=== PATIENT | female | born 1975 | race Caucasian/White ===

== ENCOUNTER 2016-03-31 16:39 | Outpatient (CLI) | payer MEDICAID ==
[2016-03-31 19:06] LABS: HEMATOCRIT 18.6 % (36.0-47.0); HGB HCT DIFFERENCE -0.9; MEAN CORPUSCULAR HEMOGLOBIN 28.3 pg (27.0-33.4); MEAN CORPUSCULAR HGB CONC 31.5 g/dL (32.0-36.0); MEAN CORPUSCULAR VOLUME 90 fl (80-97); RED BLOOD COUNT 2.07 10^6/uL (3.72-5.28); RED CELL DISTRIBUTION WIDTH 21.4 % (11.5-14.0); WHITE BLOOD COUNT 12.5 10^3/uL (4.0-10.5)
[2016-03-31 19:20] LABS: HEMOGLOBIN 5.9 g/dL (12.0-15.5)
[2016-04-01] MEDS ORDERED: FUROSEMIDE INJ/PF 20 MG/2 ML SDV IV PRN (08:49)
[2016-04-01] MEDS ORDERED: ACETAMINOPHEN 325 MG TABLET PO PRN (08:49)
[2016-04-01] MEDS ORDERED: DIPHENHYDRAMINE HCL 25 MG CAPSULE PO PRN (08:49)
[2016-04-01] MEDS ORDERED: ACETAMINOPHEN 325 MG TABLET ONE (08:50)
[2016-04-01] MEDS ORDERED: DIPHENHYDRAMINE HCL 25 MG CAPSULE ONE (08:50)
[2016-04-01] MEDS ORDERED: NORMAL SALINE 250 ML IV PRN (08:53)
[2016-04-01 14:49] VITALS: BP 114/52
== END 2016-04-01 14:50 | disposition home or self-care (01) ==
LOC: OD 16:39 → 5TH 04-01 08:01 → OD 04-01 14:50
PROVIDERS: ATTEND Internal Medicine
PROC: 30233N1 Transfusion of Nonautologous Red Blood Cells into Peripheral Vein, Percutaneous Approach (ICD-10-PCS; principal; 2016-04-01)
DX: D64.9 Anemia, unspecified (principal)
CPT/HCPCS: 86900; 86901; 36415; 36430; 86850; 86920; P9016; J3490 ×2

== ENCOUNTER → 2016-04-28 | Outpatient (CLI) | payer MEDICAID | LOC: RAD 09:30 | PROVIDERS: ATTEND Internal Medicine | DX: C50.412 Malignant neoplasm of upper-outer quadrant of left female breast (principal) | CPT/HCPCS: 71260; 74177 ==

== ENCOUNTER 2016-06-18 10:50 | Emergency (ER) | payer OTHER, MEDICAID ==
--- NOTE | 2016-06-18 10:58 | ER Document Report ---
ED General Pain - General Stated Complaint: PAIN ALL OVER Time seen by provider: 10:58 Mode of Arrival: Medic Information source: Patient Notes: 40-year-old female sent from Dr. Tidwell office due to generalized pain crisis and did not receive her chemotherapy that she was supposed to have today.. The patient admits that she ran out of the OxyContin 60 mg that she takes twice a day yesterday and she does not have any oxycodone and short acting 20 mg left. She is opiate dependent for her metastatic breast cancer stage IV. No fever or chills. No chest pain or abdominal pain. Patient states she believes she is in withdrawal. TRAVEL OUTSIDE OF THE [place] IN LAST 30 DAYS: No - Related Data Allergies/Adverse Reactions: cefaclor [From Ceclor] Allergy (Verified 08/11/15 19:08) shellfish derived Allergy (Verified 11/26/15 11:11) Past Medical History - General Information source: Patient, Parent - Social History Smoking Status: Former Smoker Frequency of alcohol use: None Drug Abuse: None Lives with: Family Family History: Reviewed & Not Pertinent - Past Medical History Cardiac Medical History: Reports: Hx Hypercholesterolemia Pulmonary Medical History: Reports: Hx Asthma, Hx Pneumonia Neurological Medical History: Reports: Hx Cerebrovascular Accident, Hx Migraine Malignancy Medical History: Reports: Hx Bone Cancer - Metastasis, Hx Breast Cancer - Stage IV Musculoskeltal Medical History: Denies Hx Arthritis Psychiatric Medical History: Reports: Hx Depression Past Surgical History: Reports: Hx Section, Hx Orthopedic Surgery - right knee - Immunizations Hx Diphtheria, Pertussis, Tetanus Vaccination: No Hx Pneumococcal Vaccination: 03/14/12 Review of Systems - Review of Systems Constitutional: See HPI EENT: No symptoms reported Cardiovascular: No symptoms reported Respiratory: No symptoms reported Gastrointestinal: No symptoms reported Genitourinary: No symptoms reported Female Genitourinary: No symptoms reported Musculoskeletal: See HPI Skin: No symptoms reported Hematologic/Lymphatic: No symptoms reported Neurological/Psychological: No symptoms reported Physical Exam - Vital signs Vitals: Resp Pulse Ox 11 L 94 06/18/16 11:39 06/18/16 11:39 Interpretation: Normal Notes: Moaning and curling up in pain - General General appearance: Alert In distress: Moderate - HEENT Head: Normocephalic, Atraumatic Eyes: Normal Conjunctiva: Normal Pupils: PERRL Neck: Supple. No: Lymphadenopathy - Respiratory Respiratory status: No respiratory distress Chest status: Nontender Breath sounds: Normal Chest palpation: Normal - Cardiovascular Rhythm: Regular Heart sounds: Normal auscultation Murmur: No - Abdominal Inspection: Normal Distension: No distension Bowel sounds: Normal Tenderness: Nontender Organomegaly: No organomegaly - Back Back: Normal, Nontender. No: CVA tenderness - Extremities General upper extremity: Normal inspection, Nontender, Normal color, Normal ROM , Normal temperature General lower extremity: Normal inspection, Nontender, Normal color, Normal ROM , Normal temperature, Normal weight bearing. No: Patricia's sign - Neurological Neuro grossly intact: Yes Cognition: Normal Orientation: AAOx4 Lucio Coma Scale Eye Opening: Spontaneous Lucio Coma Scale Verbal: Oriented Lucio Coma Scale Motor: Obeys Commands Lucio Coma Scale Total: 15 Speech: Normal Motor strength normal: LUE, RUE, LLE, RLE Sensory: Normal - Psychological Associated symptoms: Normal affect, Normal mood - Skin Skin Temperature: Warm Skin Moisture: Dry Skin Color: Normal Skin irregularity: negative: Rash Course - Re-evaluation Re-evalutation: 06/18/16 13:[address] Tidwell who will increase her oxycontin to 80 mg twice a day and also give her some more short acting 20 mg. She may have urinary tract infection with 1+ bacteria and 17 wbc's so I will prescribe an antibiotic pending urine culture results. 06/19/16 10:24 Called and checked and spoke with the mother who said that her pain level down off when she got increased the oxycotin 80 mg twice a day., Also Dr. Tidwell also gave her more short acting 20 mg oxycodone - Vital Signs Vital signs: Temp Pulse Resp BP Pulse Ox 98.7 F 20 104/61 78 L 06/18/16 14:06 06/18/16 13:52 06/18/16 13:52 06/18/16 14:00 - Laboratory Result Diagrams: 06/18/16 11:15 06/18/16 11:15 Laboratory results interpreted by me: 06/18/16 06/18/16 06/18/16 11:15 11:15 11:15 RBC 3.00 L Hgb 8.3 L Hct 24.5 L RDW 15.9 H Seg Neuts % (Manual) 86 H Lymphocytes % (Manual) 7 L Metamyelocytes % 1 H Sodium 147.2 H Chloride 110 H Creatinine 0.49 L Glucose 132 H Magnesium 2.5 H AST 44 H Alkaline Phosphatase 180 H Ur Leukocyte Esterase 06/18/16 11:47 RBC Hgb Hct RDW Seg Neuts % (Manual) Lymphocytes % (Manual) Metamyelocytes % Sodium Chloride Creatinine Glucose Magnesium AST Alkaline Phosphatase Ur Leukocyte Esterase MODERATE H Discharge - Discharge Clinical Impression: chronic pain, stage IV breast cancer Urinary tract infection Qualifiers: Urinary tract infection type: site unspecified Hematuria presence: without hematuria Qualified Code(s): N39.0 - Urinary tract infection, site not specified Condition: Good Disposition: HOME, SELF-CARE Instructions: Cephalexin ([facility]), Urinary Tract Infection ([facility]), Chronic Pain Control ([facility]) Additional Instructions: go directly to dr tidwell office for pain medication prescriptions to er any concerns urine culture is pending Please complete the patient satisfaction survey if you get one, and return it.. If you do not receive a survey, then you can go to the [facility] website, [email or web address] and place your comments about your very good care. Thank you very much. It was a pleasure being your medical provider today. Prescriptions: Sulfamethoxazole/Trimethoprim [Sulfamethoxazole-Tmp Ds Tablet] 1 each PO BID # 14 tablet Referrals: EDUIN GUTIÉRREZ MD [Primary Care Provider] - Follow up as needed IVONNE TIDWELL MD [ACTIVE STAFF] - 06/18/16
[2016-06-18] MEDS ORDERED: NORMAL SALINE 1000 ML 1,000 ML IV ONE (11:18)
[2016-06-18] MEDS ORDERED: ONDANSETRON HCL INJ/PF 4 MG/2 ML SDV IV ONE (11:24)
[2016-06-18] MEDS ORDERED: HYDROMORPHONE HCL INJ/PF 2 MG/ML AMPULE IV ONE ×2 (11:24→12:05)
[2016-06-18 11:37] LABS: HEMATOCRIT 24.5 % (36.0-47.0); HEMOGLOBIN 8.3 g/dL (12.0-15.5); HGB HCT DIFFERENCE 0.4; MEAN CORPUSCULAR HEMOGLOBIN 27.7 pg (27.0-33.4); MEAN CORPUSCULAR HGB CONC 33.9 g/dL (32.0-36.0); MEAN CORPUSCULAR VOLUME 82 fl (80-97); RED CELL DISTRIBUTION WIDTH 15.9 % (11.5-14.0)
[2016-06-18 11:50] LABS: ALANINE AMINOTRANSFERASE 52 U/L (9-52); ALBUMIN 3.6 g/dL (3.5-5.0); ALKALINE PHOSPHATASE 180 U/L (38-126); ANION GAP 13 (5-19); ASPARTATE AMINO TRANSFERASE 44 U/L (14-36); BILIRUBIN,DIRECT 0.4 mg/dL (0.0-0.4); BILIRUBIN,TOTAL 0.7 mg/dL (0.2-1.3); BLOOD UREA NITROGEN 8 mg/dL (7-20); CARBON DIOXIDE 24 mmol/L (22-30); CHLORIDE 110 mmol/L (98-107); CREATININE RESULT 0.49 mg/dL (0.52-1.25); GLUCOSE 132 mg/dL (75-110); POTASSIUM 3.9 mmol/L (3.6-5.0); SODIUM 147.2 mmol/L (137-145); TOTAL PROTEIN 6.6 g/dL (6.3-8.2)
[2016-06-18 12:04] LABS: BASOPHILS % (MANUAL) 0 % (0-2); EOSINOPHILS % (MANUAL) 0 % (0-6); LYMPHOCYTES % (MANUAL) 7 % (13-45); TOTAL CELLS COUNTED 100
[2016-06-18 12:05] LABS: ANISOCYTOSIS 1+; POIKILOCYTOSIS 1+; POLYCHROMASIA SLIGHT; TEAR DROP CELLS 1+
[2016-06-18 12:07] LABS: APPEARANCE,URINE CLOUDY; BILIRUBIN,URINE NEGATIVE (NEGATIVE); GLUCOSE, URINE NEGATIVE (NEGATIVE); KETONES,URINE NEGATIVE (NEGATIVE); LEUKOCYTE ESTERASE,URINE MODERATE (NEGATIVE); NITRITE,URINE NEGATIVE (NEGATIVE); PROTEIN,URINE NEGATIVE (NEGATIVE); URINE SPECIFIC GRAVITY 1.009; UROBILINOGEN,URINE NEGATIVE mg/dL (<2.0)
[2016-06-18 14:06] VITALS: BP 104/61
== END 2016-06-18 14:06 | disposition home or self-care (01) ==
LOC: ER 10:50
DX: G89.29 Other chronic pain (principal); C50.919 Malignant neoplasm of unspecified site of unspecified female breast; N39.0 Urinary tract infection, site not specified; M79.1 Myalgia; Z91.013 Allergy to seafood
CPT/HCPCS: 96376; 99283; 96374; 96375; 36415; 87086; 83735; 85025; 80053; 81001; J1170; J2405; J7030

== ENCOUNTER → 2016-07-05 | Outpatient (CLI) | payer MEDICAID | LOC: RAD 08:49 | PROVIDERS: ATTEND Internal Medicine | DX: C50.412 Malignant neoplasm of upper-outer quadrant of left female breast (principal) | CPT/HCPCS: 71260; 74177 ==

== ENCOUNTER → 2016-07-09 | Outpatient (CLI) | payer MEDICAID | LOC: RAD 08:54 | PROVIDERS: ATTEND Internal Medicine | DX: C50.412 Malignant neoplasm of upper-outer quadrant of left female breast (principal); C79.51 Secondary malignant neoplasm of bone | CPT/HCPCS: 78306; A9503; Q9969 ==

== ENCOUNTER 2016-07-14 08:57 | Day surgery (SDC) | payer MEDICAID ==
[2016-07-14 09:41] LABS: HEMATOCRIT 26.6 % (36.0-47.0); HEMOGLOBIN 9.1 g/dL (12.0-15.5); HGB HCT DIFFERENCE 0.7; MEAN CORPUSCULAR HEMOGLOBIN 28.4 pg (27.0-33.4); MEAN CORPUSCULAR HGB CONC 34.1 g/dL (32.0-36.0); MEAN CORPUSCULAR VOLUME 83 fl (80-97); RED BLOOD COUNT 3.19 10^6/uL (3.72-5.28); WHITE BLOOD COUNT 9.3 10^3/uL (4.0-10.5)
[2016-07-14 09:54] LABS: BLOOD UREA NITROGEN 13 mg/dL (7-20); CREATININE RESULT 0.65 mg/dL (0.52-1.25); PARTIAL THROMBOPLASTIN TIME 28.2 SEC (23.5-35.8); PROTHROMBIN TIME 13.6 SEC (11.4-15.4)
[2016-07-14] MEDS ORDERED: FENTANYL CITRATE INJ/PF 100 MCG/2 ML AMPUL ONE ×2 (10:40→11:38)
[2016-07-14] MEDS ORDERED: MIDAZOLAM 2 MG/2 ML INJ ONE (10:40)
[2016-07-14 15:18] VITALS: BP 132/83
== END 2016-07-14 14:15 | disposition home or self-care (01) ==
LOC: RAD 08:57
PROVIDERS: ATTEND Internal Medicine
PROC: 0FB13ZX Excision of Right Lobe Liver, Percutaneous Approach, Diagnostic (ICD-10-PCS; principal; 2016-07-14)
DX: C78.7 Secondary malignant neoplasm of liver and intrahepatic bile duct (principal); C50.412 Malignant neoplasm of upper-outer quadrant of left female breast; Z17.0 Estrogen receptor positive status [ER+]; E78.5 Hyperlipidemia, unspecified; D64.9 Anemia, unspecified; M19.90 Unspecified osteoarthritis, unspecified site; J45.909 Unspecified asthma, uncomplicated; Z88.8 Allergy status to other drugs, medicaments and biological substances; Z79.899 Other long term (current) drug therapy
CPT/HCPCS: 36415; 84520; 82565; 85027; 85610; 85730; 88342 ×2; 88341 ×2; 88305 ×2; 77012; 47000; J2250; J3010

== ENCOUNTER → 2016-08-19 | Outpatient (CLI) | payer MEDICAID ==
--- NOTE | 2016-08-19 11:57 | RADIOLOGY REPORT (SQ) ---
EXAM DESCRIPTION: MRI HEAD COMBO COMPLETED DATE/TIME: 08/19/2016 10:56 am REASON FOR STUDY: BREAST CA W/ BONE METS (C50.412)(C79.51) C50.412 MALIG NEOPLASM OF UPPER-OUTER QU ADRANT OF LEFT FEMAL COMPARISON: None. TECHNIQUE: Multiplanar imaging includes noncontrasted T1, T2, FLAIR, diffusion with ADC map and post gadolinium contrast T1 sequences. Images stored on PACS. CONTRAST TYPE AND DOSE: 10 mL Multihance. RENAL FUNCTION: GFR > 60. LIMITATIONS: None. FINDINGS: ANATOMY: Multiple areas of abnormal signal in the calvarium, the largest over the left fro ntal convexity with loss of normal T1 signal in the bone and adjacent dural enhancement. Several sma ller lesions scattered throughout the calvarium. CSF SPACES: Normal in size and contour. No hemorrhage. CEREBRUM: Sulci and gyri normal in size and contour. Normal white matter signal on FLAIR imaging. No evidence of hemorrhage, mass, or extraaxial fluid collection. Diffuse leptomeningeal enhancement. POSTERIOR FOSSA: Leptomeningeal enhancement. No hemorrhage. No edema, masses, or mass effect. Interna l auditory canals, cerebellopontine angles are normal. Small amount of fluid in the mastoid air cell s, left greater than right. DIFFUSION IMAGING: Negative for acute or subacute infarction. ORBITS: No masses. Globes normal. PARANASAL SINUSES: Mucosal thickening right sphenoid sinus. OTHER: No other significant finding. IMPRESSION: Meningeal and bone metastasis. TECHNICAL DOCUMENTATION: JOB ID: [id number] [employer]- All Rights Reserved
== END ==
LOC: RAD 09:40
PROVIDERS: ATTEND Internal Medicine
DX: C50.412 Malignant neoplasm of upper-outer quadrant of left female breast (principal); C79.51 Secondary malignant neoplasm of bone
CPT/HCPCS: 70553; A9577

== ENCOUNTER → 2017-01-20 | Outpatient (CLI) | payer MEDICAID ==
--- NOTE | 2017-01-20 12:10 | RADIOLOGY REPORT (SQ) ---
EXAM DESCRIPTION: CT CHEST WITH; CT ABD/PELVIS WITH IV ONLY COMPLETED DATE/TIME: 01/20/2017 10:48 am REASON FOR STUDY: C50.412 MALIG NEOPLASM OF UPPER-OUTER QUADRANT OF LEFT FEMALE BREAST C50.412 FRANCISCO G NEOPLASM OF UPPER-OUTER QUADRANT OF LEFT FEMAL CONTRAST TYPE AND DOSE: contrast/concentration: Isovue 370.00 mg/ml; Total Contrast Delivered: 65.0 ml; Total Saline Delivered: 56.0 ml RENAL FUNCTION: None required. The patient is less than 50 years old. COMPARISON: CT abdomen 02/25/2016 CT chest 07/05/2016 TECHNIQUE: CT scan of the chest performed using helical scanning technique with dynamic intravenous contrast injection. Images reviewed with lung, soft tissue and bone windows. Reconstructed coronal a nd sagittal MPR images reviewed. All images stored on PACS. All CT scanners at this facility use dose modulation, iterative reconstruction, and/or weight based d osing when appropriate to reduce radiation dose to as low as reasonably achievable (ALARA). [facility]: Dose Right [facility]: CareDose [facility]: Dose Right [facility]: Teradose 4D [facility]: Smart Innorange Oy RADIATION DOSE: Up-to-date CT equipment and radiation dose reduction techniques were employed. CTDIv ol: 4.4 - 5.0 mGy. DLP: 658 mGy-cm.. LIMITATIONS: None. FINDINGS: AXILLAE: No adenopathy. CHEST WALL: There is a 10 mm nodule in the left breast on image 25 series 2 there is not present on t he study of 07/05/2016. LUNGS: There is a sub cm somewhat ground-glass pulmonary nodule on image 35 series 6. This is better defined than on the prior study. There is an 8 mm slightly irregular nodules seen on image 43 serie s 6 in the right lung that is very slightly larger. There is an 8 mm nodule in the left lung on imag e 45 series 6 that is not identified on the earlier study a 5 mm nodule seen in the right lung on nicolas ge 47 series 6. This is not identified on the earlier study. There is an 11 by 19 mm mass in the ri ght lower lobe on image 56 series 6 that is new. There are other smaller nodules in the lungs that a re new. PLEURA: Small pleural effusions, left slightly greater than right. There is slight pleural thickenin g on the left on image 35 series 2 that is new. THYROID: No masses or significant asymmetry. HILAR AND MEDIASTINAL STRUCTURES: No identified masses or abnormal nodes. AORTA AND GREAT VESSELS: No aneurysm. No dissection. PULMONARY ARTERIES: No identified pulmonary emboli. Study not optimized for the pulmonary arteries. HEART: No pericardial effusion. HARDWARE AND LIFELINES: None. BONES: Very numerous lytic lesions are present in bones. OTHER: No other significant finding. IMPRESSION: 1. New left breast nodule. 2. Increasing metastatic disease to lungs and possibly pleura. Metastatic disease to bone. COMPARISON: 02/25/2016 RADIATION DOSE: Up-to-date CT equipment and radiation dose reduction techniques were employed. CTDIv ol: 4.4 - 5.0 mGy. DLP: 658 mGy-cm.mGy. TECHNIQUE: CT scan of the abdomen and pelvis performed with intravenous and oral contrast using samm eusebia scanning technique with dynamic intravenous contrast injection. Images reviewed with lung, soft tissue and bone windows. Reconstructed coronal and sagittal MPR images reviewed. Delayed images for evaluation of the urinary system also acquired and evaluated. All images stored on PACS. All CT scanners at this facility use dose modulation, iterative reconstruction, and/or weight based d osing when appropriate to reduce radiation dose to as low as reasonably achievable (ALARA). [facility]: Dose Right [facility]: SureCare [facility]: Dose Right [facility]: Teradose 4D [facility]: Plazapoints (Cuponium) FINDINGS: LIVER: There are now all large areas of confluent low-density scattered throughout the nikki er. The change is dramatic. The largest lesion is in the midline measures 8 cm in transverse diamet er. SPLEEN: Splenomegaly. PANCREAS: No masses. No significant calcifications. No adjacent inflammation or peripancreatic flui d collections. Pancreatic duct not dilated. GALLBLADDER: The gallbladder appears to be contracted. There is pericholecystic fluid. ADRENAL GLANDS: No significant masses or asymmetry. RIGHT KIDNEY AND URETER: No solid masses. No significant calcification. No hydronephrosis or hydroure ter. LEFT KIDNEY AND URETER: No solid masses. No significant calcification. No hydronephrosis or hydrouret er. AORTA AND VESSELS: No aneurysm. No dissection. Renal arteries, SMA, celiac without stenosis. RETROPERITONEUM: No retroperitoneal adenopathy, hemorrhage or masses. LARGE AND SMALL BOWEL: No dilatation. No masses. No wall thickening. APPENDIX: Normal. ABDOMINAL WALL: There is an 8 cm wide ventral hernia containing unobstructed bowel. PERITONEAL CAVITY: No free air. No free fluid in the peritoneal cavity. There is some pericholecyst ic fluid. PELVIS: No mass or free fluid. Normal bladder. BONES: Extensive metastatic disease is present in the bones. OTHER: No other significant finding. IMPRESSION: 1. There is very extensive metastatic disease in the liver and the bones. The changes in the liver are dramatic. Bowel metastases are more difficult to quantify given the extent of them. 2. There is pericholecystic fluid. 3. There is a wide ventral hernia containing unobstructed bowel. TECHNICAL DOCUMENTATION: JOB ID: [id number] Quality ID # [id number]: Final reports with documentation of one or more dose reduction techniques (e.g., Au tomated exposure control, adjustment of the mA and/or kV according to patient size, use of iterative reconstruction technique) 2010 [employer]- All Rights Reserved
--- NOTE | 2017-01-20 12:48 | RADIOLOGY REPORT (SQ) ---
EXAM DESCRIPTION: MRI HEAD COMBO COMPLETED DATE/TIME: 01/20/2017 12:16 pm REASON FOR STUDY: C50.412 MALIG NEOPLASM OF UPPER-OUTER QUADRANT OF LEFT FEMALE BREAST C50.412 FRANCISCO G NEOPLASM OF UPPER-OUTER QUADRANT OF LEFT FEMAL COMPARISON: MRI brain 08/19/2016 TECHNIQUE: Multiplanar imaging includes noncontrasted T1, T2, FLAIR, diffusion with ADC map and post gadolinium contrast T1 sequences. Images stored on PACS. CONTRAST TYPE AND DOSE: 10 mL Multihance. RENAL FUNCTION: None required. The patient is less than 50 years old. LIMITATIONS: None. FINDINGS: Patient has diffuse calvarial involvement with metastatic breast cancer. There are multiple areas of tumor involvement with extension into the scalp and intracranially, most significant are as follows: 1. Anterior right frontal calvarial metastatic lesion, 6 cm transverse by 4 cm AP x 4 cm craniocaudad , bulging into the scalp has a soft tissue mass. There is also bulging into the right frontal region intracranially, flattening the right frontal lobe with mild vasogenic edema. 2. Right greater wing sphenoid metastatic tumor, 4 cm transverse by 4.5 cm AP by 3.5 cm craniocaudad, bulging into the posterolateral right orbit with moderate proptosis. There is also mass effect on t he anterior right temporal lobe, with flattening of the right temporal cortex and adjacent vasogenic edema. 3. Midline posterior calvarium 5 cm superior to the torcula, 3 cm transverse by 2 cm AP x 4 cm cranio caudad with soft tissue tumor bulging intracranially and into the scalp. There is adjacent narrowing of the posterior aspect superior sagittal sinus without sinus thrombosis. No mass effect on the adj acent posterior parietal brain parenchyma 4. Left frontal bone orbital roof region, 3.4 cm transverse by 3.5 cm AP by 3.3 cm craniocaudad with mild local mass effect on the left the inferior frontal brain parenchyma, and mild downward displacem ent of the left globe. 5. Sellar lesion extending into the sphenoid sinus and cavernous sinuses bilaterally, 2.6 by 2.4 by 2 cm in size. 6. There is diffuse dural enhancement from diffuse dural metastatic involvement No MR evidence of acute is ischemic change, or acute intracranial hemorrhage. No hydrocephalus. Mil d mucous membrane thickening in the right ethmoid, right frontal, and right maxillary sinuses IMPRESSION: Extensive calvarial metastatic disease now causing bulky epidural intracranial masses wi th local mass effect and vasogenic edema in the right frontal, and right temporal regions as above. Central skull base and bilateral bony orbital involvement also present No MR evidence of dural venous sinus thrombosis or acute infarct. EVIDENCE OF ACUTE STROKE: NO. TECHNICAL DOCUMENTATION: JOB ID: [id number] [employer]- All Rights Reserved
== END ==
LOC: RAD 09:49
PROVIDERS: ATTEND Internal Medicine
DX: C50.412 Malignant neoplasm of upper-outer quadrant of left female breast (principal); C79.51 Secondary malignant neoplasm of bone
CPT/HCPCS: 70553; 71260; 74177

== ENCOUNTER 2017-01-28 00:39 | Emergency (ER) | payer MEDICAID ==
[2017-01-28] MEDS ORDERED: HYDROMORPHONE HCL INJ/PF 2 MG/ML AMPULE ONE (00:43)
[2017-01-28] MEDS ORDERED: HYDROMORPHONE HCL INJ/PF 2 MG/ML AMPULE IV ONE ×3 (00:43→03:47)
[2017-01-28] MEDS ORDERED: ONDANSETRON HCL INJ/PF 4 MG/2 ML SDV IV ONE (00:43)
[2017-01-28] MEDS ORDERED: ONDANSETRON HCL INJ/PF 4 MG/2 ML SDV ONE (00:44)
--- NOTE | 2017-01-28 01:11 | ER Document Report ---
ED Fall - General Stated Complaint: LEFT FEMUR DEFORMITY Time Seen by Provider: 01/28/17 00:43 Mode of Arrival: Medic Information source: Patient, Emergency Med Personnel - [facility] Notes: Female with history of stage IV metastatic breast cancer with brain and bone metastases presents with left leg pain and deformity after falling at home. She has severe pain and gross deformity to the left femur. Denies injury otherwise. Currently undergoing radiation therapy but no chemotherapy. Patient received fentanyl 100 mcg total in route to the emergency department but still having considerable pain. Denies new head injury or other new traumatic pain. No loss of consciousness. Last oral intake was approximately 10 PM. - Related data Allergies/Adverse Reactions: shellfish derived Allergy (Intermediate, Unverified 01/28/17 05:00) Difficulty breathing cefaclor [From Ceclor] Allergy (Mild, Verified 01/28/17 05:00) Purpura thrombopenia Past Medical History - Social History Smoking Status: Never Smoker Family History: Reviewed & Not Pertinent Physical Exam - Vital signs Vitals: Resp Pulse Ox 34 H 95 01/28/17 01:00 01/28/17 01:00 Notes: Pulse 116 blood pressure 129/78 - Notes Notes: GENERAL: VS as per nursing doc. Well-appearing, well-nourished and in no acute distress. HEAD: Atraumatic, normocephalic. EYES: Sclera anicteric, left ptosis noted. ENT: Oropharynx is clear, tonsillar pillars well visualized. Slightly dry. Left facial droop is noted NECK: Normal range of motion, supple without no tenderness to palpation LUNGS: Breath sounds clear to auscultation bilaterally and equal. No wheezes rales or rhonchi. Port in place. HEART: Tachycardic but regular without murmur. ABDOMEN: Soft, non-tender, large ventral hernia/diastases noted EXTREMITIES: Gross deformity with left mid femur angulated approximately 90. 1 + dorsalis pedis pulse. NEUROLOGICAL: Chronic abnormalities as noted above, sensation intact at foot. PSYCH: Anxious, cooperative SKIN: Warm, slightly diaphoretic, no distal cyanosis Course - Re-evaluation Re-evalutation: 01/28/17 02:[address] Maldonado the patient's fracture. He reports with the angulation and history of cancer, he feels this will need further specialized care and repair. On my review of the x-ray she appears to have some lytic and sclerotic lesions more proximally over the femoral and intertrochanteric area 01/28/17 03:02 Patient and family request transfer to [place] for further care, evaluation and treatment. I spoke with the transfer center at [facility] and they will be contacting us back regarding consideration for acceptance. Patient's ANC calculated out to approximately 720. She is anemic and has required multiple transfusions in the past. She remains hemodynamically stable at this point. 01/28/17 03:[address] Johnson, hospitalist at [facility] and he recommended we contact orthopedics as they usually are the primary admitting physicians. Transfer center will contact them. At this point they have no beds and we will be waiting probably till morning. Family updated. 01/28/17 03:48 Patient requiring intermittent doses of Dilaudid which seemed to help and then slowly wears off. She seems to be tolerating it much better with the hair traction. I just reevaluated. Still has 2+ dorsalis pedis pulse neurovascular intact distally and able to wiggle toes. Family updated on transfer status. 01/28/17 03:[address] Elizalde from orthopedics and they will accept the patient to the emergency department as a transfer. Patient will remain n.p.o. is n.p.o. since 10:00 last night. 01/28/17 04:39 Patient was seen at the time of transfer. LLE is NVID. Pain much improved with no further complaints. Hemodynamically stable. - Vital Signs Vital signs: Temp Pulse Resp BP Pulse Ox 98 F 100 19 107/75 95 01/28/17 01:35 01/28/17 01:35 01/28/17 04:51 01/28/17 04:51 01/28/17 04:51 - Laboratory Result Diagrams: 01/28/17 01:50 01/28/17 01:50 Laboratory results interpreted by me: 01/28/17 01/28/17 01/28/17 01:50 01:50 01:50 WBC 0.9 L* RBC 2.33 L Hgb 8.3 L Hct 23.5 L MCV 101 H MCH 35.5 H RDW 19.3 H Plt Count 108 L Seg Neutrophils % 78.2 H Monocytes % 2.3 L Absolute Neutrophils 0.7 L Absolute Lymphocytes 0.1 L Absolute Monocytes 0.0 L PT 15.7 H Chloride 111 H Carbon Dioxide 20 L Creatinine 0.50 L Glucose 157 H Calcium 7.3 L Urine Protein Urine Ketones Urine Urobilinogen 01/28/17 02:04 WBC RBC Hgb Hct MCV MCH RDW Plt Count Seg Neutrophils % Monocytes % Absolute Neutrophils Absolute Lymphocytes Absolute Monocytes PT Chloride Carbon Dioxide Creatinine Glucose Calcium Urine Protein 100 H Urine Ketones 20 H Urine Urobilinogen 4.0 H - Diagnostic Test Radiology reviewed: Image reviewed - Limited initial x-rays obtained showed mid femur fracture with 90 angulation as well as it appears to be grossly displaced intertrochanteric fracture., Reports reviewed - Postreduction film shows good alignment of the fracture. Reevaluation of the left hip shows no fracture. Initial x-ray appears probably more related to positioning and rotation. Procedures - Joint Reduction/Fracture Care Left Thigh Consent obtained: Yes Conscious sedation: Yes Pre-procedure NV exam: Yes - Neurovascularly intact distally Fracture: Closed Manipulation comment: Direct traction was applied and patient placed in hare traction splint. Post-procedure NV exam: Yes - 2+ dorsalis pedis pulse Reduction attempts: 1 Notes: 01/28/17 01:34 Patient received propofol 60 mg with good effect maintaining oxygen saturation, airway. I was present in room during entire procedure pulling traction and patient is beginning to awaken with good vital signs. Consent was obtained prior to the procedure from both the patient who had received some medication but understood the procedure and final was from the patient's mother who I discussed risks benefits alternatives of fracture reduction and conscious sedation. Discharge - Discharge Clinical Impression: Femur fracture, left, Anemia, Metastatic breast cancer Condition: Fair Disposition: [facility]
[2017-01-28] MEDS ORDERED: PROPOFOL INJ 200 MG/20 ML VIAL IV ONE (01:15)
--- NOTE | 2017-01-28 01:59 | RADIOLOGY REPORT (SQ) ---
EXAM DESCRIPTION: FEMUR LEFT CLINICAL HISTORY: FALL COMPARISON: None. FINDINGS: Acute angulated fracture of the proximal left femoral diaphysis. The femur is angulated at approximately 90 degrees. Osteopenia. IMPRESSION: 1. Acute fracture of the proximal femoral diaphysis with approximately 90 degrees posterior angulation.
--- NOTE | 2017-01-28 02:13 | RADIOLOGY REPORT (SQ) ---
EXAM DESCRIPTION: CHEST SINGLE VIEW CLINICAL HISTORY: FALL COMPARISON: None. FINDINGS: Single frontal view of the chest. The cardiomediastinal silhouette has normal size and contour. No consolidation, pneumothorax, or pleural effusion. No displaced rib fractures identified. Right-sided Mediport with tip in the high right atrium. Leads overlie the chest. Degenerative change of the glenohumeral joints. IMPRESSION: 1. No acute pulmonary process identified.
--- NOTE | 2017-01-28 02:14 | RADIOLOGY REPORT (SQ) ---
EXAM DESCRIPTION: HIP LEFT AP/LATERAL CLINICAL HISTORY: POST REDUCTION COMPARISON: Same day FINDINGS/IMPRESSION: 2 views of the left hip post reduction. Interval reduction of proximal left femoral diaphyseal fracture now in near normal anatomic alignment with minimal angulation. Osteopenia.
[2017-01-28] MEDS: RINGERS SOLUTION,LACTATED 1,000 ML IV PRN ×2 (02:19→03:52)
[2017-01-28] MEDS ORDERED: RINGERS SOLUTION,LACTATED 500 ML IV ONE (02:23)
[2017-01-28 02:24] LABS: ABSOLUTE LYMPHOCYTES (AUTO) 0.1 10^3/uL (0.5-4.7); ABSOLUTE NEUT (AUTO) 0.7 10^3/uL (1.7-8.2); BASOPHILS % (AUTO) 1.9 % (0-2); EOSINOPHILS % (AUTO) 0.3 % (0-6); HEMATOCRIT 23.5 % (36.0-47.0); HEMOGLOBIN 8.3 g/dL (12.0-15.5); HGB HCT DIFFERENCE 1.4; LYMPHOCYTES % (AUTO) 17.3 % (13-45); MEAN CORPUSCULAR HEMOGLOBIN 35.5 pg (27.0-33.4); MEAN CORPUSCULAR HGB CONC 35.1 g/dL (32.0-36.0); MEAN CORPUSCULAR VOLUME 101 fl (80-97); MONOCYTES % (AUTO) 2.3 % (3-13); RED BLOOD COUNT 2.33 10^6/uL (3.72-5.28); RED CELL DISTRIBUTION WIDTH 19.3 % (11.5-14.0); SEGMENTED NEUTROPHILS % (AUTO) 78.2 % (42-78)
[2017-01-28 02:31] LABS: ANION GAP 13 (5-19); BLOOD UREA NITROGEN 7 mg/dL (7-20); CALCIUM 7.3 mg/dL (8.4-10.2); CARBON DIOXIDE 20 mmol/L (22-30); CHLORIDE 111 mmol/L (98-107); GLUCOSE 157 mg/dL (75-110); POTASSIUM 3.8 mmol/L (3.6-5.0); SODIUM 143.9 mmol/L (137-145)
[2017-01-28 02:37] LABS: PROTHROMBIN TIME 15.7 SEC (11.4-15.4)
[2017-01-28 02:44] LABS: ANISOCYTOSIS 2+; POLYCHROMASIA SLIGHT
[2017-01-28 02:45] LABS: OVALOCYTES SLIGHT; POIKILOCYTOSIS 1+; TEAR DROP CELLS 1+
[2017-01-28 02:46] LABS: WHITE BLOOD COUNT 0.9 10^3/uL (4.0-10.5)
[2017-01-28 02:57] LABS: APPEARANCE,URINE CLEAR; BILIRUBIN,URINE NEGATIVE (NEGATIVE); GLUCOSE, URINE NEGATIVE (NEGATIVE); KETONES,URINE 20 mg/dL (NEGATIVE); LEUKOCYTE ESTERASE,URINE NEGATIVE (NEGATIVE); NITRITE,URINE NEGATIVE (NEGATIVE); PROTEIN,URINE 100 mg/dL (NEGATIVE); URINE SPECIFIC GRAVITY 1.014
[2017-01-28 04:05] VITALS: BP 107/75
[2017-01-28 14:49] LABS: PATH REVIEW PATHOLOGIST REVIEWED
== END 2017-01-28 04:45 | disposition short-term general hospital (02) ==
LOC: MERGE 00:39 → ER 00:39
PROC: 0QS9XZZ Reposition Left Femoral Shaft, External Approach (ICD-10-PCS; principal; 2017-01-28)
DX: S72.92XA Unspecified fracture of left femur, initial encounter for closed fracture (principal); C50.919 Malignant neoplasm of unspecified site of unspecified female breast; C79.31 Secondary malignant neoplasm of brain; C79.51 Secondary malignant neoplasm of bone; M21.952 Unspecified acquired deformity of left thigh; D64.9 Anemia, unspecified; Z79.899 Other long term (current) drug therapy; W19.XXXA Unspecified fall, initial encounter
CPT/HCPCS: 96376; 99285; 96361; 96374; 96375; 86900; 86901; 36415; 86850; 85025; 85610; 80048; 81001; 71010; 73552; 73502; 27502; J1170; J2405; J7120